=== PATIENT | female | born 2000 | race Caucasian/White ===

== ENCOUNTER 2019-07-03 00:36 | Emergency (ER) | payer MEDICAID ==
[~2019-07-03] VITALS: Ht 160 cm; Wt 86.2 kg
[2019-07-03 00:37] VITALS: BP 132/80
--- NOTE | 2019-07-03 00:37 | NUR ---
TO BED # 12 AMBULATORY
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
[2019-07-03] MEDS ORDERED: KETOROLAC 30 MG/ML VIAL IM ONE (01:05)
--- NOTE | 2019-07-03 01:17 | NUR ---
X-Ray at bedside.
[2019-07-03 02:12] VITALS: BP 132/80
--- NOTE | 2019-07-03 02:13 | NUR ---
Patient discharged with v/s stable. Written and verbal after care instructions given and explained. Patient alert, oriented and verbalized understanding of instructions. Ambulatory with steady gait. All questions addressed prior to discharge. ID band removed. Patient advised to follow up with PMD. Rx of FLEXERIL, MOTRIN given. Patient educated on indication of medication including possible reaction and side effects. Opportunity to ask questions provided and answered.
== END 2019-07-03 02:12 | disposition home or self-care (01) ==
LOC: MED 00:36
DX: M25.512 Pain in left shoulder (principal); E11.9 Type 2 diabetes mellitus without complications; Z88.8 Allergy status to other drugs, medicaments and biological substances; V43.52XA Car driver injured in collision with other type car in traffic accident, initial encounter; Y93.89 Activity, other specified; Y92.89 Other specified places as the place of occurrence of the external cause; Y99.8 Other external cause status
CPT/HCPCS: 73000; 96372; 99283; J1885; Q0092

== ENCOUNTER 2019-08-02 19:01 | Emergency (ER) | payer MEDICAID ==
[~2019-08-02] VITALS: Ht 160 cm; Wt 89.8 kg
[2019-08-02 19:11] VITALS: BP 132/79
--- NOTE | 2019-08-02 19:14 | NUR ---
AMB TO LOBBY WITH STEADY GAIT.
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
--- NOTE | 2019-08-02 19:41 | NUR ---
XRAY AT BEDSIDE
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
[2019-08-02 21:07] VITALS: BP 111/86
--- NOTE | 2019-08-02 21:07 | NUR ---
Patient discharged with v/s stable. Pt states pain relief with 2/10 tollerable pain. Written and verbal after care instructions given and explained. Provided with ortho CD. Patient alert, oriented and verbalized understanding of instructions. Ambulatory with steady gait. All questions addressed prior to discharge. ID band removed. Patient advised to follow up with PMD and when to return to ER. Rx of lidocain and ibuprofen given. Patient educated on indication of medication including possible reaction and side effects. Opportunity to ask questions provided and answered.
== END 2019-08-02 21:07 | disposition home or self-care (01) ==
LOC: MED 19:01
DX: M79.671 Pain in right foot (principal); R22.41 Localized swelling, mass and lump, right lower limb; E10.9 Type 1 diabetes mellitus without complications; Z98.890 Other specified postprocedural states; Z88.8 Allergy status to other drugs, medicaments and biological substances
CPT/HCPCS: 73630; 99283; Q0092

== ENCOUNTER 2020-03-31 16:55 | Emergency (ER) | payer MEDICAID ==
[~2020-03-31] VITALS: Ht 162.6 cm; Wt 98.9 kg
[2020-03-31 17:00] VITALS: BP 145/75
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
[2020-03-31 17:30] VITALS: BP 145/75
--- NOTE | 2020-03-31 17:30 | NUR ---
Patient discharged with v/s stable. Written and verbal after care instructions given and explained. Patient alert, oriented and verbalized understanding of instructions. Ambulatory with steady gait. All questions addressed prior to discharge. ID band removed. Patient advised to follow up with PMD. Rx of Diphenhydramine 25mg, Zyrtec 10mg, Triamcinolone Acetonide, Keflex 500mg given. Patient educated on indication of medication including possible reaction and side effects. Opportunity to ask questions provided and answered.
== END 2020-03-31 17:30 | disposition home or self-care (01) ==
LOC: MED 16:55
DX: T63.441A Toxic effect of venom of bees, accidental (unintentional), initial encounter (principal); L03.115 Cellulitis of right lower limb; E10.9 Type 1 diabetes mellitus without complications; Z88.8 Allergy status to other drugs, medicaments and biological substances; Z98.890 Other specified postprocedural states; Y92.89 Other specified places as the place of occurrence of the external cause
CPT/HCPCS: 99283

== ENCOUNTER 2021-06-13 19:48 | Emergency (ER) | payer MEDICAID ==
[~2021-06-13] VITALS: Ht 162.6 cm; Wt 99.8 kg
[2021-06-13 20:06] VITALS: BP 117/78
--- NOTE | 2021-06-13 21:20 | NUR ---
PT RETURN FROM [facility] TO [facility]
--- NOTE | 2021-06-13 21:43 | NUR ---
PT TAKEN TO BED 7
--- NOTE | 2021-06-13 21:43 | NUR ---
Dr. Ring examining patient.
--- NOTE | 2021-06-13 21:45 | NUR ---
PT SEEN AND EXAMINED BY DR. DOWNEY. NO NURSING INTERVENTIONS PROVIDED.
[2021-06-13] MEDS ORDERED: IBUP-2213 PO (21:49)
[2021-06-13 21:55] VITALS: BP 117/78
== END 2021-06-13 21:55 | disposition home or self-care (01) ==
LOC: MED 19:48
DX: S63.502A Unspecified sprain of left wrist, initial encounter (principal); E10.9 Type 1 diabetes mellitus without complications; Z88.8 Allergy status to other drugs, medicaments and biological substances; Z79.899 Other long term (current) drug therapy; Z98.890 Other specified postprocedural states; W19.XXXA Unspecified fall, initial encounter; Y93.89 Activity, other specified; Y92.89 Other specified places as the place of occurrence of the external cause; Y99.8 Other external cause status
CPT/HCPCS: 73110; 99283

== ENCOUNTER 2023-09-25 18:25 | Emergency (ER) | payer MEDICAID ==
[~2023-09-25] VITALS: Ht 162.6 cm; Wt 99.8 kg
[~2023-09-25 18:25] MED LIST: IBUP-2213 PO
[2023-09-25 18:44] VITALS: BP 144/77; PULSE 104; RESP 18; TEMP 97.5; O2SAT 99
[2023-09-25] MEDS ORDERED: LID5T TP (19:59)
[2023-09-25] MEDS ORDERED: CYCL-711 PO (19:59)
[2023-09-25] MEDS ORDERED: NAPR-54 PO (19:59)
[2023-09-25] MEDS ORDERED: KETOROLAC 30 MG/ML VIAL ONE (20:32)
[2023-09-25] MEDS: KETOROLAC 30 MG/ML VIAL IM ONE (20:35)
[2023-09-25 20:50] VITALS: BP 135/72; PULSE 88; RESP 16; TEMP 98; O2SAT 99
== END 2023-09-25 20:50 | disposition home or self-care (01) ==
LOC: MED 18:25
DX: M25.522 Pain in left elbow (principal); M54.2 Cervicalgia; M25.552 Pain in left hip; Z79.899 Other long term (current) drug therapy; V49.88XA Car occupant (driver) (passenger) injured in other specified transport accidents, initial encounter; Y93.89 Activity, other specified; Y92.89 Other specified places as the place of occurrence of the external cause; Y99.8 Other external cause status
CPT/HCPCS: 73030; 81025; 96372; 99283; J1885